=== PATIENT | male | born 1980 | race Caucasian/White ===

== ENCOUNTER 2020-12-26 20:58 | Emergency (ER) | payer BC ==
[2020-12-26 22:37] LABS: HEMOGLOBIN 14.9 gm/dl (14.0-17.5); WHITE BLOOD COUNT 7.6 K/UL (4.5-11.0)
== END 2020-12-27 02:00 | disposition home or self-care (01) ==
LOC: ER1 20:58
PROVIDERS: Emergency Medicine
DX: R07.81 Pleurodynia (principal); Z20.822 Contact with and (suspected) exposure to COVID-19; J44.9 Chronic obstructive pulmonary disease, unspecified; Z88.5 Allergy status to narcotic agent; Z87.442 Personal history of urinary calculi
CPT/HCPCS: 71045; 82550; 82553; 83690; 83874; 84484; 85025; 85379; 93005; 96374; 99285; J1885; U0002